=== PATIENT | male | born 1965 | race Caucasian/White ===

== ENCOUNTER 2020-03-15 16:29 | Emergency (ER) | payer OTHER ==
[~2020-03-15] VITALS: Ht 182.9 cm; Wt 111.1 kg
[2020-03-15 17:06] LABS: BASOPHILS ABSOLUTE AUTO 0.03 K/mm3 (0.00-0.23); BASOPHILS PERCENT AUTO 0 % (0-2); EOSINOPHILS ABSOLUTE AUTO 0.06 K/mm3 (0.00-0.68); EOSINOPHILS PERCENT AUTO 1 % (0-6); Hematocrit 42.7 % (37.0-53.0); Hemoglobin 14.4 g/dL (13.5-17.5); IMMATURE GRAN ABSOLUTE AUTO 0.02 K/mm3 (0.00-0.10); IMMATURE GRAN PERCENT AUTO 0 % (0-1); LYMPHOCYTES ABSOLUTE AUTO 1.74 K/mm3 (0.84-5.20); LYMPHOCYTES PERCENT AUTO 20 % (21-46); MONOCYTES ABSOLUTE AUTO 0.67 K/mm3 (0.16-1.47); MONOCYTES PERCENT AUTO 8 % (4-13); Mean Corpuscular HGB 29.9 pg (26.0-34.0); Mean Corpuscular HGB Conc 33.7 g/dL (31.5-36.5); Mean Corpuscular Volume 89 fL (80-100); Mean Platelet Volume 9.6 fL (9.1-12.4); NEUTROPHILS ABSOLUTE AUTO 6.38 K/mm3 (1.96-9.15); NEUTROPHILS PERCENT AUTO 72 % (41-73); Platelet Count 190 K/mm3 (150-400); RDW Coefficient Variation 14.9 % (11.7-14.2); RDW Standard Deviation 48.9 fL (35.1-46.3); Red Blood Cell Count 4.81 M/mm3 (4.30-5.90)
[2020-03-15 17:34] LABS: Alanine Aminotransfer (ALT/SGP 67 U/L (12-78); Albumin, Blood 4.3 g/dL (3.4-5.0); Alk Phos 108 U/L (50-136); Anion Gap 14 mmol/L (6-16); Aspartate Aminotrans (AST/SGOT 78 U/L (12-37); Bilirubin, Total 0.8 mg/dL (0.1-1.0); Blood Urea Nitrogen 12 mg/dL (8-24); Bun/Creatinine Ratio 12.2 (12.0-20.0); CO2, Blood 22 mmol/L (21-32); Chloride, Blood 93 mmol/L (98-108); Creatinine, Blood 0.98 mg/dL (0.60-1.20); Globulin, Blood 4.2 g/dL (2.2-4.0); Glomerular Filtration Rate >60 (60-); Glucose, Blood 98 mg/dL (70-99); Potassium, Blood 4.1 mmol/L (3.5-5.5); Sodium, Blood 129 mmol/L (136-145); Total Protein, Blood 8.5 g/dL (6.4-8.2)
[2020-03-15 17:40] LABS: Ethanol (Alcohol), Blood, Med 284 mg/dL
[2020-03-15 17:46] LABS: U Amphetamine Screen Not Detected; U Barbituate Screen Not Detected; U Benzodiazapine Screen DETECTED; U Buprenorphine Screen Not Detected; U Cannabinoids Screen Not Detected; U Cocaine Screen Not Detected; U Methadone Screen Not Detected; U Methamphetamine Screen Not Detected; U Opiates Screen Not Detected; U Oxycodone Screen Not Detected; U Phencyclidine Screen Not Detected; U Propoxyphene Screen Not Detected
[2020-03-16] MEDS ORDERED: CHLO25 PO (12:21)
[2020-03-16] MEDS ORDERED: SERT100 PO (15:47)
[2020-03-16] MEDS ORDERED: LISI20 PO (15:47)
== END 2020-03-15 18:52 | disposition home or self-care (01) ==
LOC: ER 16:29
PROVIDERS: Physician Assistant
DX: F10.10 Alcohol abuse, uncomplicated (principal); J44.9 Chronic obstructive pulmonary disease, unspecified; I11.0 Hypertensive heart disease with heart failure; I50.9 Heart failure, unspecified; F32.9 Major depressive disorder, single episode, unspecified; Z86.73 Personal history of transient ischemic attack (TIA), and cerebral infarction without residual deficits; F17.210 Nicotine dependence, cigarettes, uncomplicated
CPT/HCPCS: 80053; 85025; 93005; 93010; 96374; 99285-25; G0480; J2060; J7030

== ENCOUNTER 2020-03-16 09:22 | Inpatient (IN) | payer OTHER ==
[~2020-03-16] VITALS: Ht 182.9 cm; Wt 114.7 kg
[2020-03-16 10:10] LABS: Chloride (POC) 97 mmol/L (98-108); Creatinine (POC) 0.9 mg/dL (0.8-1.3); Glucose (ISTAT POC) 132 mg/dL (70-99); Potassium (POC) 4.2 mmol/L (3.5-5.5); Sodium (POC) 129 mmol/L (135-148); Total CO2 (POC) 21 mmol/L (21-32)
[2020-03-16] MEDS ORDERED: CHLO25 PO (12:21)
[2020-03-16] MEDS ORDERED: SERT100 PO (15:47)
[2020-03-16] MEDS ORDERED: LISI20 PO (15:47)
--- NOTE | 2020-03-16 17:32 | NUR ---
ADMIT NOTE RECEIVED REPORT FROM AMIE POP IN ED. PT TO ROOM VIA GURNEY; 4 PERSON ASSIST WITH SLIDER SHEET. PT ORIENTED TO ROOM AND CALL LIGHT. EDUCATED ON FALL RISK. PT A&Ox4; ANXIOUS BUT COOPERATIVE WITH CARE. CIWA 17-15; MEDICATED WITH ATIVAN AND LIBRIUM PER ORDERS. CIWA; HEADACHE; NAUSEA; SEVERE TREMORS; SENSITIVITY TO LIGHT, NOISE AND TOUCH; DIAPHORETIC; ANXIOUS. PT REPORTS PAIN TO BACK AND ABD. RASH TO BUTTOCKS AND GROIN, BARRIER CREAM IN PLACE. PT SOB WITH EXERTION, SPO2>90% ON RA. PT REPORTS NAUSEA; MEDICATED WITH ZOFRAN; PT REPORTS MILD RELEIFE. PT DENIES DIZZINESS. PT UNSTEADY; 1-2 PERSON ASSIST TO BEDSICE COMMODE. HEATON CATHETER PLACED; PT TOLERATED WELL. ELEVATED BP; MEDICATED WITH SCHEDULED IV LOPRESSOR. OTHER VSS. NO OTHER ACUTE CHANGES NOTED. WILL CONTINUE TO MONITOR UNTIL REPORT GIVEN TO ONCOMING RN.
[2020-03-16 17:34] LABS: Source, Urine Catheter
[2020-03-16 17:36] LABS: Appearance, Urine Clear (Clear); Bilirubin, Urine Neg (Neg); Blood, Urine Neg (Neg); Color, Urine Yellow (P-Yellow); Glucose Qualitative, Urine Neg (Neg); Ketones, Urine 2+ (Neg); Leukocyte Esterase, Urine Neg (Neg); Nitrite, Urine Neg (Neg); Protein, Urine 2+ (Neg); Urobilinogen, Urine 1+ (Normal)
[2020-03-16 17:44] LABS: Bacteria Rare /hpf; Red Blood Cells, Urine Rare /hpf (0-2); Squamous Epithelial Cells Few /hpf (Few); White Blood Cells, Urine Rare /hpf (0-5)
[2020-03-17 05:29] LABS: BASOPHILS ABSOLUTE AUTO 0.03 K/mm3 (0.00-0.23); BASOPHILS PERCENT AUTO 1 % (0-2); EOSINOPHILS ABSOLUTE AUTO 0.13 K/mm3 (0.00-0.68); EOSINOPHILS PERCENT AUTO 2 % (0-6); Hematocrit 38.5 % (37.0-53.0); Hemoglobin 12.6 g/dL (13.5-17.5); IMMATURE GRAN ABSOLUTE AUTO 0.01 K/mm3 (0.00-0.10); IMMATURE GRAN PERCENT AUTO 0 % (0-1); LYMPHOCYTES ABSOLUTE AUTO 1.45 K/mm3 (0.84-5.20); LYMPHOCYTES PERCENT AUTO 27 % (21-46); MONOCYTES ABSOLUTE AUTO 1.23 K/mm3 (0.16-1.47); MONOCYTES PERCENT AUTO 23 % (4-13); Mean Corpuscular HGB 29.8 pg (26.0-34.0); Mean Corpuscular HGB Conc 32.7 g/dL (31.5-36.5); Mean Corpuscular Volume 91 fL (80-100); Mean Platelet Volume 9.3 fL (9.1-12.4); NEUTROPHILS ABSOLUTE AUTO 2.48 K/mm3 (1.96-9.15); NEUTROPHILS PERCENT AUTO 47 % (41-73); Platelet Count 170 K/mm3 (150-400); RDW Coefficient Variation 15.1 % (11.7-14.2); RDW Standard Deviation 50.9 fL (35.1-46.3); Red Blood Cell Count 4.23 M/mm3 (4.30-5.90); White Blood Cell Count 5.33 K/mm3 (4.00-11.30)
[2020-03-17 05:52] LABS: Alanine Aminotransfer (ALT/SGP 42 U/L (12-78); Albumin, Blood 3.2 g/dL (3.4-5.0); Albumin/Globulin Ratio 0.9 (0.8-1.8); Alk Phos 85 U/L (50-136); Anion Gap 6 mmol/L (6-16); Aspartate Aminotrans (AST/SGOT 47 U/L (12-37); Blood Urea Nitrogen 9 mg/dL (8-24); Bun/Creatinine Ratio 10.9 (12.0-20.0); CO2, Blood 26 mmol/L (21-32); Calcium, Blood 8.6 mg/dL (8.5-10.1); Chloride, Blood 104 mmol/L (98-108); Creatinine, Blood 0.82 mg/dL (0.60-1.20); Globulin, Blood 3.5 g/dL (2.2-4.0); Glomerular Filtration Rate >60 (60-); Glucose, Blood 95 mg/dL (70-99); Sodium, Blood 136 mmol/L (136-145); Total Protein, Blood 6.7 g/dL (6.4-8.2)
--- NOTE | 2020-03-17 06:10 | NUR ---
SHIFT SUMMARY PT SLEPT ON AND OFF THROUGH SHIFT. CIWA RANGE 6-11, MEDICATED NEEDED. NO SEIZURE ACTIVITY OBSERVED.PT OVERESTIMATES HIS ABILITIES, VERY UNSTEADY ON FEET. 1 EPISODE OF DIARRHEA, BUTTOCKS REMAIN VERY EXCORITED, AREA CLEAN AND BARRIER CREAM APPLIED.
--- NOTE | 2020-03-17 07:36 | NUR ---
RECEIVED REPORT FROM AMIE NAPOLES. ASSUMING CARE OF PT. PT RESTING QUIETLY, LYING ON RIGHT SIDE WITH EYES CLOSED, RESPIRATIONS EVEN AND UNLABORED.
--- NOTE | 2020-03-17 11:54 | NUR ---
Upon receiving an admit referral for Advance Directive education, I visit patient. Patient immediately informs me that he has no interest in Advance Care Planning and does not even want the Advance Directive form. I then focus on patient's spiritual needs. Patient tells me about his deep struggle with alcoholism and his desire to get to [place] where he can finish his detox and hopefully gain what he needs to stop drinking. Patient admits that he has been through the [place] live-in program already and knows that it can be helpful. I provide therapeutic listening and prayer. Patient responds well and shows signs of a deeper respolve. I will continue to remain available to patient and family.
--- NOTE | 2020-03-17 15:05 | NUR ---
Patient agreed to having [facility] on 03/17/2020 @ 14:02 for the day of 03/17/2020.
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
[2020-03-18 03:35] LABS: Hematocrit 39.2 % (37.0-53.0); Hemoglobin 12.4 g/dL (13.5-17.5); Mean Corpuscular HGB 29.4 pg (26.0-34.0); Mean Corpuscular HGB Conc 31.6 g/dL (31.5-36.5); Mean Corpuscular Volume 93 fL (80-100); Mean Platelet Volume 9.7 fL (9.1-12.4); Platelet Count 190 K/mm3 (150-400); RDW Coefficient Variation 14.9 % (11.7-14.2); RDW Standard Deviation 51.8 fL (35.1-46.3); Red Blood Cell Count 4.22 M/mm3 (4.30-5.90); White Blood Cell Count 4.91 K/mm3 (4.00-11.30)
[2020-03-18 04:00] LABS: Anion Gap 6 mmol/L (6-16); Blood Urea Nitrogen 9 mg/dL (8-24); Bun/Creatinine Ratio 10.8 (12.0-20.0); CO2, Blood 26 mmol/L (21-32); Calcium, Blood 8.4 mg/dL (8.5-10.1); Chloride, Blood 105 mmol/L (98-108); Creatinine, Blood 0.84 mg/dL (0.60-1.20); Glomerular Filtration Rate >60 (60-); Glucose, Blood 121 mg/dL (70-99); Potassium, Blood 3.7 mmol/L (3.5-5.5); Sodium, Blood 137 mmol/L (136-145)
--- NOTE | 2020-03-18 06:45 | NUR ---
SHIFT SUMMARY PT CONTINUES TO HAVE ACUTE ALCOHOL WITHDRAWAL. SLEPT AT TIMES DURING SHIFT, CIWA SCORES AVERAGING AROUND 12. TOLERATING PO INTAKE WELL, NO ACUTE RESP DISTRESS, SATS >93%. COURSE NON PRODUCTIVE COUGH. ASSISTED UP TO BSC, VERY UNSTEADY ON FEET. SOFT FORMED STOOL. URINARY CATHETER PATENT WITH CLEAR YELLOW URINE. EXCORIATION TO BUTTOCKS HEALING, NO LONGER BLEEDING AT SITE. WILL CONTINUE TO MONITOR
--- NOTE | 2020-03-18 11:06 | NUR ---
[facility] CARE THIS AM: PT ALERT AND ORIENTED, ANXIOUS AT TIMES. PT IS ACTIVELY ETOH WITHDRAWING AT THIS TIME, LIBRIUM AND ATIVAN PRN Q2HRS, PT C/O MILD HEADACHE AND NAUSEA, VISIBLE TREMORS WORSENS WITH MOVEMENTS. VITALS HRR 60-70'S, SATS ABOVE 95% ON 2L OF O2, BP SYSTOLIC 140-170'S PT STARTED ON HOME DOSE LISINOPRIL TODAY, AFEBRILE. PT HAS BEEN SLEEPING MOSTLY SINCE THIS AM. HEATON IN PLACE DRAINING VIA GRAVITY YELLOW IN COLOR. NO OTHER COMPLAINS AT THIS TIME, BED ALARM ON FOR SAFETY. NO ATTEMPTS OF GETTING OUT OF BED, ABLE TO MAKE NEEDS KNOWN, WILL MONITO
--- NOTE | 2020-03-18 18:06 | NUR ---
PT SUMMARY: PT WITH NO ACUTE CHANGE FOR THE SHIFT, PT RECEIVES ATIVAN/LIBRIUM Q2-3HRS PRN, TREMORS LESSEN THIS AFTERNOON PT WAS ABLE TO TRANSFER TO COMMODE VIA WALKER 1PA, PT HAD A SOFT BOWEL MOVEMENT, PT WAS GIVEN LOMOTIL PER REQUEST, CREAM APPLIED TO BUTTOCKS DUE TO RASH. VITALS HRR SR 60-70, BP SYSTOLIC 160'S, SATS ABOVE 95% ON 2L OF O2, AFEBRILE. PT NOW RESTING IN BED NO COMPLAINS AT THIS TIME, CALL LIGHTS IN REACH WILL MONITOR
--- NOTE | 2020-03-19 04:54 | NUR ---
SHIFT SUMMARY NO ACUTE CHANGES THIS SHIFT, CIWAS RANGING 12-14 T/O SHIFT,NEEDING ATIVAN AND LIBRIUM ADMIN Q2, TYLENOL & ZOFRAN ALSO ADMIN THIS SHIFT, SKING CARE COMPLETED SEVERAL TIMES DURING SHIFT, PT SLEPT T/O THE NIGHT WAKING @ 0300 REQ SNACK, PT SLEEPING AT THIS TIME, CALL LIGHT IN REACH, WILL CONT TO MONITOR UNTIL REPORT GIVEN TO DAY RN.
--- NOTE | 2020-03-19 17:10 | NUR ---
PT SUMMARY: NO ACUTE CHANGE FOR THE SHIFT. PT FOR POSS DISCHARGE TO A REHAB FACILITY. PT CONTINUES ON LIBRIUM/ATIVAN FOR ETOH WITHDRAWAL PT STILL C/O MILD HEAD ACHE, NAUSEA, TREMORS WORSENS WITH MOVEMENTS. ZOFRAN GIVEN WELL FOR NAUSEA. CATHETER WAS PULLED OUT TODAY PT HAS BEEN VOIDING ADEQUATE AMOUNT OF URINE USES URIANL FOR VOIDING. CREAM APPLIED TO BUTTOCKS. VITALS REMAINED STABLE, PT DENIES ANY CHEST PAIN. PT IN BED RESTING, NO OTHER ISSUES ENCOUNTERED FOR THE SHIFT, NS RUNNING AT 100MLS/HR. PT ABLE TO MAKE NEEDS KNOWN CALL LIGHTS IN REACH WILL MONITOR
--- NOTE | 2020-03-20 12:00 | NUR ---
PT EXPRESSING THAT HE WANTS TO LEAVE AMA. PT STATED "I ALREADY CALLED [facility] AND THEY ARE FULL". PRN CIWA TREATMENT HELD AFTER PT EXPLAINED THAT HE WOULD BE DRIVING HOME. DR SMITH, NOTIFIED OF PT WANTING TO LEAVE AMA AND THAT HE WOULD BE DRIVING. DR SMITH AGREED TO HAVE CIWA MEDS HELD . AFTER TALKING MORE WITH PT, PT WAS AGREEABLE TO GIVE RN TIME TO TALK WITH CASE MANAGEMENT ABOUT TREATMENT DISCHARGE OPTIONS. VITALS ARE STABLE, PT CONTINUES TO HAVE WITHDRAWAL SYMPTOMS, BUT TREATMENT IS ON HOLD DUE TO PT POSSIBLY DRIVING. EXPLAINED RISKS OF LEAVING AMA TO PT.
[2020-03-20] MEDS ORDERED: AMLO5 PO (14:37)
--- NOTE | 2020-03-20 16:15 | NUR ---
DISCHARGE INSTRUCTIONS GONE OVER WITH PT. INSTRUCTED PT ON MEDICATIONS AND ETOH ABUSE/WITHDRAWAL. INFORMATION ON FOLLOWUP AND ETOH TREATMENT GONE OVER WITH PT. PT STATED UNDERSTANDING. BELONGINGS GATHERED AND GIVEN TO PT. PT ESCORTED OUT TO [facility] VIA WHEELCHAIR.
== END 2020-03-20 16:42 | disposition home or self-care (01) | DRG 897 ==
LOC: ER 09:22 → PCU 14:04
PROVIDERS: Emergency Medicine; Internal Medicine; ADMIT Hospitalist
DX: F10.239 Alcohol dependence with withdrawal, unspecified (principal); E87.1 Hypo-osmolality and hyponatremia; I16.0 Hypertensive urgency; F17.210 Nicotine dependence, cigarettes, uncomplicated; G89.29 Other chronic pain; M25.512 Pain in left shoulder; R21 Rash and other nonspecific skin eruption; R19.7 Diarrhea, unspecified; F32.9 Major depressive disorder, single episode, unspecified; I11.0 Hypertensive heart disease with heart failure; I50.9 Heart failure, unspecified; Z86.73 Personal history of transient ischemic attack (TIA), and cerebral infarction without residual deficits
CPT/HCPCS: 36415; 80047; 80048; 80053; 81001; 85014; 85025; 85027; 94762; 96374; 96375; 96376; 99285-25; A9270; A9270-GY; C9113; J2060; J2405; J3411; J3475; J7030; J7042